=== PATIENT | male | born 1945 | race Caucasian/White ===

== ENCOUNTER 2025-04-26 10:24 | Outpatient (REF) | payer OTHER, SELFPAY ==
--- NOTE | ~2025-04-26 | XR_ITS ---
EXAMINATION: XR SHOULDER 2 OR MORE VIEWS RIGHT HISTORY: M25.511 - Pain in right shoulder COMPARISON: There are no prior studies available for comparison. FINDINGS: Two views of the right shoulder are submitted. Osseous mineralization is normal. There is no fracture or dislocation. There is severe osteoarthritis of the glenohumeral and acromioclavicular joints with joint space narrowing and osteophyte formation. The humeral head appears high riding, suggestive of rotator cuff arthropathy. The soft tissues are unremarkable. XR/XR shoulder RT min 2V IMPRESSION: Severe osteoarthritis of the glenohumeral and acromioclavicular joints. Findings suggestive of rotator cuff arthropathy. Electronically signed by: Manny Rangel MD 04/26/2025 11:29 AM EDT
== END 2025-04-26 10:25 | disposition home or self-care (01) ==
LOC: HO.HOSX 10:24
PROVIDERS: Referring Provider Orthopaedic Surgery; Visit Provider Orthopaedic Surgery
DX: M25.311 Other instability, right shoulder (principal); M25.811 Other specified joint disorders, right shoulder; M25.511 Pain in right shoulder; Z79.899 Other long term (current) drug therapy
CPT/HCPCS: 73030; 99202

== ENCOUNTER 2025-04-26 10:54 | Outpatient (AMB) | payer OTHER, SELFPAY ==
--- OUTSIDE RECORDS SUMMARY | 2025-03-27 12:27 | XMS_ITS ---
Author Name [facility] [place] Organization [facility] [place] Address [address] [place] [id number] Care Team Providers Care Veterinary Receptionist Name Role Phone LING HERRMANN Primary Care Provider Unav ailable LAWRENCE, SOPHIA Unavailable Unavailable JOANN VITAL Unavailable Unavailable ANISH BELCHER Unavailable Unavailable MORE BLAIR Unavailable Unavailable NIGEL CODY Unavailable Unavailable TYLER NUNEZ Unavailable Unavailable DEBBIE DOOLEY Unavailable Unavailable LYNNE LANDAVERDE Unavailable Unavailable Insurance Providers: All historical and current Section Date Range: From patient's date of to the date document was created. This section includes the names of all active insurance providers for the patient. Insurance Provider Type of Coverage Plan Name Start of Policy Coverage End of Policy Coverage Group Number Member ID Insurance Provider's Telephone Number Policy Rascon's Name Patient's Relationship to Policy Rascon [facility] ([facility]) MEDICARE ADVANTAGE MCR ([facility]) Oct 11, 2012 [id number] MARIYA BEST PATIENT [facility] ([facility]) MEDICARE ADVANTAGE MCR ([facility]) Oct 11, 2012 [id number] [phone] MARIYA BEST PATIENT Selected Encounter This section includes the information on record at [place] for the Encounter. 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 Date/Time Primary/Secondary Diagnosis Diagnosis Name Provider Source Mar 27, 2025 04:50 PM PRIMARY Unspecified cirrhosis of liver LING HERRMANN [facility] [place] [facility] Mar 27, 2025 04:50 PM SECONDARY Benign prostatic hyperplasia with lower urinary tract symp EULA HERRMANNTHIA [facility] [place] [facility] Mar 27, 2025 04:50 PM SECONDARY Chronic pain syndrome EULA HERRMANNTHIA [facility] [place] [facility] Mar 27, 2025 04:50 PM SECONDARY Essential (primary) [facility] [place] [facility] Mar 27, 2025 04:50 PM SECONDARY [facility]othy[facility], [facility] [place] [facility] Plan of Treatment: Future Appointments (+ 6 months) and Future Tests (+/- 45 days) The Plan of Treatment section includes future care activities for the patient from all [place] treatmentfacilities. This section includes future appointments and future orders which are active, pending or scheduled. Future Appointments This section includes appointments that were scheduled to occur 6 months from the date of the Encounter, up to a maximum of 20 appointments. The data comes from all [place] treatment facilities. Appointment Date/Time Appointment Type Appointme nt Facility Name Apr 19, 2025 10:00 AM AMBULATORY - NONE [place] [facility] [place] [facility] Apr 19, 2025 10:00 AM [facility]ORY [facility] MEDICINE [facility] Apr 26, 2025 11:00 AM AMBULATORY - MEDICINE [place] [facility] [place] [facility] Active, Pending, and Scheduled Orders This section includes a listing of several types of active, pending, and scheduled orders, including clinic medications orders, diagnostic test orders, procedure orders and consult orders; where the start date of the order is 45 days before the date of the Encounter or 45 days after the date of theEncounter. The data comes from all [place] treatment facilities. Test Date/Time Test Type Test Details Facility Name Apr 12, 2025 03:59 PM Consult Order CARDIOLOGY ONE Cons Rat [facility] Apr 16, 2025 10:15 AM Consult Order COMMUNITY CARE-HEMATOLOGY Cons Rat Farmer[facility] Choice [facility] Apr 25, 2025 04:41 PM Consult Order [facility] OUTPT Cons Rat Farmer's Choice [facility] Lab Results: +/- 30 days of the encounter This section includes the Chemistry and Hematology Lab Results on record with [place] for the patient. Radiology Reports and Pathology Reports are provided separately, in subsequent sections. Lab Results This section contains the Chemistry/Hematology Results that were resulted 30 days before or 30 daysafter the date of the Encounter. Date/Time Source Result Type Result - Unit Interpretation Reference Range Specimen Type Comment Apr 10, 2025 01:30 PM [facility] PHOSPHATIDYLETHANOL (PEth),BLOOD (Q) BLOOD Sp ecimen Type: BLOOD Comment: REFERENCE RANGE: <20 ng/mL REFERENCE RANGE: <20 ng/mL See LDT Notes Notes and Comments This drug testing is for medical treatment only. Analysis was performed as non-forensic testing and these results should be used only by healthcare providers to render diagnosis or treatment, or to monitor progress of medical conditions. LDT Notes: These tests were developed and their analytical performance characteristics have been determined by [facility]. They have not been cleared or approved by the FDA. These assays have been validated pursuant to the CLIA regulations and are used for clinical purposes. Healthcare Providers needing Interpretation assistance, please contact us at [phone] ( ) M-F, 8am to 10pm EST Test Performed by [facility], [address] [place] [address] Aly Brush M.D., Ph.D., Director of Laboratories , CLIA [id number] TEST PERFORMED AT: , Ordering Provider: EULA HERRMANN Report Released Date/Time: Apr 10, 2025 11:27 AM Reporting Lab: [place] [facility] [place] [facility] [address] [facility] [address] Performing Lab: [facility] [place] [facility] [address] [address] PEth 16:0/18:1 (POPEth) (q) NEGATIVE ng/mL SEE BELOW PEth 16:0/18:2 (PLPEth) (q) NEGATIVE ng/mL SEE BELOW PETH COMMENTS (q) SEE NOTE Apr 10, 2025 01:30 PM [facility] [place] [facility] TSH SERUM Specimen Type: SERUM No comment entered. Ordering Provider: LING HERRMANN Report Released Date/Time: Apr 10, 2025 11:27 AM Reporting Lab: [facility] [place] [facility] [address] [facility] [address] Performing Lab: [facility] [place] [facility] [address] [facility] [address] TSH 5.20 u[IU]/mL H 0.35-4.94 Apr 10, 2025 01:30 PM [facility] PSA SERUM Specimen Type: SERUM No comment entered. Ordering Provider: LING HERRMANN Report Released Date/Time: Apr 10, 2025 11:27 AM Reporting Lab: [facility] [place] [facility] [address] [facility] [address] Performing Lab: [place] [facility] [place] [facility] [address] [facility] [address] PSA 14.5 ng/mL H 0-4 Apr 10, 2025 01:30 PM [facility] [place] [facility] LIVER FUNCTION SERUM Specimen Type: SERUM No comment entered. Ordering Provider: LING HERRMANN Report Released Date/Time: Apr 10, 2025 11:27 AM Reporting Lab: [facility] [place] [facility] [address] [facility] [address] Performing Lab: [facility] [place] [facility] [address] [facility] [address] PROTEIN,TOTAL 4.9 g/dL L 6.4-8.3 ALBUMIN 2.4 g/dL L 3.2-4.6 ALKALINE PHOSPHATASE 50 U/L 40-150 AST 49 U/L H 5-34 ALT 18 U/L 0-55 BILIRUBIN, TOTAL 1.4 mg/dL H 0.2-1.2 BILIRUBIN, DIRECT 0.7 mg/dL H 0-0.5 Apr 10, 2025 01:30 PM [facility] BASIC METABOLIC PANEL (non-fasting) SERUM Spe cimen Type: SERUM No comment entered. Ordering Provider: LING HERRMANN Report Released Date/Time: Apr 10, 2025 11:27 AM Reporting Lab: [facility] [address] [facility] [address] Performing Lab: [address] [address] UREA NITROGEN 38 mg/dL H 8-26 GLUCOSE 96 mg/dL 65-100 SODIUM 137 mmol/L 136-145 POTASSIUM 3.8 mmol/L 3.5-5.1 CHLORIDE 108 mmol/L H 98-107 CO2 25 meq/L 23-31 CALCIUM 8.0 mg/dL L 8.8-10 CREATININE, Serum 1.77 mg/dL H 0.72-1.25 eGFR(CKD-EPI 2020) 39 mL/min L >60 Apr 10, 2025 01:30 PM [facility] CBC AND DIFF (AUTO) BLOOD Specimen Type: BLOO D No comment entered. Ordering Provider: LING HERRMANN Report Released Date/Time: Apr 10, 2025 11:27 AM Reporting Lab: [facility] [address] [facility] [address] Performing Lab: [address] [address] WBC 2.73 10*3/uL L 4.50-11.00 RBC 2.70 10*6/uL L 4.23-5.66 HGB 9.7 g/dL L 12.8-17 HCT 27.4 L 39.2-50.4 MCV 101.5 fL H 82-99 MCHC 35.4 g/dL H 30.8-35.1 PLT 76 10*3/uL L 140-360 MPV 11.0 fL 9.2-12.4 RDW-CV 14.9 12.0-16.0 MONO, ABS 0.34 10*3/uL 0.30-1.10 MCH 35.9 pg H 26.2-32.6 NEUT % 38.4 L 43.7-75.8 LYMPH % 33.7 14.0-42.3 MONO % 12.5 5.1-13.7 EOS % 13.9 H 0.4-6.8 BASO % 1.1 0.1-2.0 NEUT, ABS 1.05 10*3/uL L 2.20-7.60 LYMPH, ABS 0.92 10*3/uL L 1.00-3.20 EOS, ABS 0.38 10*3/uL 0.03-0.44 BASO, ABS 0.03 10*3/uL 0.01-0.13 IMMATURE GRAN % 0.4 0.0-0.7 IMMATURE GRAN, ABS 0.01 10*3/uL 0.00-0.0 6 NRBC % 0.0 0.0-0.0 NRBC, ABS 0.00 10*3/uL 0.00-0.00 Mar 13, 2025 10:20 AM [facility] TSH SERUM Specimen Type: SERUM No comment entered. Ordering Provider: LING HERRMANN Report Released Date/Time: Nov 20, 2024 01:19 PM Reporting Lab[facility] [address] [address] Performing [facility]: [facility] [address] [address] TSH 7.85 u[IU]/mL H 0.35-4.94 Mar 13, 2025 10:20 AM [facility] CBC BLOOD Specimen Type: BLOOD No comment entered. Ordering Provider: LING HERRMANN Report Released Date/Time: Nov 20, 2024 01:19 PM Reporting Lab: [address] [address] Performing Lab: [facility] [address] [facility] [address] WBC 3.08 10*3/uL L 4.50-11.00 RBC 3.12 10*6/uL L 4.23-5.66 HGB 11.3 g/dL L 12.8-17 HCT 31.4 L 39.2-50.4 MCV 100.6 fL H 82-99 MCHC 36.0 g/dL H 30.8-35.1 PLT 90 10*3/uL L 140-360 MPV 9.8 fL 9.2-12.4 RDW-CV 14.8 12.0-16.0 MCH 36.2 pg H 26.2-32.6 Mar 13, 2025 10:20 AM [facility] LIVER FUNCTION SERUM Specimen Type: SERUM No comment entered. Ordering Provider: LING HERRMANN Report Released Date/Time: Nov 20, 2024 01:19 PM Reporting Lab: [address] [address] Performing Lab: [address] [address] PROTEIN,TOTAL 6.0 g/dL L 6.4-8.3 ALBUMIN 2.9 g/dL L 3.2-4.6 ALKALINE PHOSPHATASE 49 U/L 40-150 AST 51 U/L H 5-34 ALT 15 U/L 0-55 BILIRUBIN, TOTAL 2.3 mg/dL H 0.2-1.2 BILIRUBIN, DIRECT 1.1 mg/dL H 0-0.5 Mar 13, 2025 10:19 AM [facility] A1A PHENOTYPE PANEL SERUM Specimen Type: SERU M Comment: The banding pattern most closely matches our PI*MM prototype. The bands appear to have been altered by disease, drugs, or possibly in vitro. 90% of normal individuals have the MM phenotype, with normal quantitative AAT levels. Many phenotypic patterns have been described, including deficiency states with F, S, Z, or other alleles. As a general estimation, compared to M allele of 100% of normal G-2-Arfccafhdrd protein, the S allele produces approximately 60% and the Z allele 20%. For example, an MS phenotype would have about 80% of normal V-8-Jyvugqgzvxh protein level, a 50% contribution from the M allele and 30% from the S allele. A ZZ phenotype would have about 20% of normal levels, a 10% contribution from each Z gene. The F allele has normal E-8-Uupwlhlrvmu levels, but the kinetics of elastase inhibition is not as efficient as an M allele product; F alleles should be considered functionally mildly deficient. Other variants are identifiable by phenotypic analysis. These include CM, DP, EM, GM, IS, LM, M1M2, M3M3, MP, MT, XX, MY, and M1N. I, P, T and null alleles are considered deleterious. C, D, E, G, L, M1, M2, M3, X and Y alleles are generally considered normal variants. The MZ-Mcfarlane phenotype is a normal variant; care should be taken to avoid confusion with the deficient MZ phenotype. Test performed by [facility] [address] [place] [address] Restaurant Associate: Ani Hoang MD,PHD,CANDI Test Reported by [facility], [facility], [address] [place] [address] Aly Brush M.D., Ph.D., Director of Laboratories , [facility] [id number] TEST PERFORMED AT: , Ordering Provider: JULIO CESAR TAFOYA Report Released Date/Time: Jan 25, 2025 11:00 AM Reporting Lab: [facility] [address] [facility] [address] Performing Lab: [facility] [address] [address] [id number] PHENOTYPE SEE NOTE A1 ANTITRYPSIN(o) 129 mg/dL 83-199 Mar 13, 2025 10:19 AM [facility] ACTIN (SMOOTH MUSCLE) ANTIBODY (IgG) SERUM Sp ecimen Type: SERUM Comment: REFERENCE RANGE: <20 U Reference Range: <20 U: Negative >or=20 U: Positive Antibodies recognizing actin are the main component of smooth muscle antibodies associated with auto- immune liver disease. Actin antibodies are found in approximately 75% of patients with autoimmune hepatitis (AIH) type 1, approximately 65% of patients with autoimmune cholangitis, approximately 30% of patients with primary biliary cirrhosis and approximately 2% of healthy controls. High values are closely correlated with AIH type 1. Test Performed by [facility], [facility], [address] [place] [address] Aly Brush M.D., Ph.D., Director of Laboratories , [place] [id number] TEST PERFORMED AT: , Ordering Provider: JULIO CESAR TAFOYA Report Released Date/Time: Jan 25, 2025 11:00 AM Reporting Lab: [address] [address] Performing Lab: [facility] [address] [address] ACTIN (SMOOTH MUSCLE) ANTIBODY (IgG) <20 SEE BELOW Mar 13, 2025 10:19 AM [facility] IGG SERUM Specimen Type: SERUM Comment: Specimen Icteric Ordering Provider: JULIO CESAR TAFOYA Report Released Date/Time: Jan 25, 2025 11:00 AM Reporting Lab: [address] [address] Performing Lab: [facility] [address] [facility] [address] IGG 1963 mg/dL H 700-1600 Mar 13, 2025 10:19 AM [facility] HEPATITIS B SURFACE ANTIBODY (HBsAb)-WH SERUM Specimen Type: SERUM No comment entered. Ordering Provider: JULIO CESAR TAFOYA Report Released Date/Time: Jan 25, 2025 11:00 AM Reporting Lab: [address] [address] Performing Lab: [facility] Mar 13, 2025 10:19 AM [facility] HEPATITIS B CORE (Total) Ab SERUM Specimen Ty pe: SERUM Comment: Hep B Surf Ag: Negative for HBsAg. Other markers of Hepatitis B virus are needed to ascertain Hepatitis B infection status. Hep B Core, Total: This test detects both IgG and IgM antibodies. A nonreactive final interpretation indicates that anti-HBc antibodies were not detected in the sample. Ordering Provider: JULIO CESAR TAFOYA Report Released Date/Time: Jan 25, 2025 11:00 AM Reporting Lab: [address] [address] Performing Lab: [address] [address] HEPATITIS B CORE (Total) Ab Non Reactive Non Reactive Mar 13, 2025 10:19 AM [facility] CERULOPLASMIN SERUM Specimen Type: SERUM Comment: Specimen Icteric Ordering Provider: JULIO CESAR TAFOYA Report Released Date/Time: Jan 25, 2025 11:00 AM Reporting Lab: [address] [address] Performing Lab: [facility] [address] [facility] [address] CERULOPLASMIN 28 mg/dL 20-60 Mar 13, 2025 10:19 AM [facility] HEPATITIS B SURFACE ANTIGEN (HBsAg)-WH SERUM Specimen Type: SERUM Comment: Hep B Surf Ag: Negative for HBsAg. Other markers of Hepatitis B virus are needed to ascertain Hepatitis B infection status. Hep B Core, Total: This test detects both IgG and IgM antibodies. A nonreactive final interpretation indicates that anti-HBc antibodies were not detected in the sample. Ordering Provider: JULIO CESAR TAFOYA Report Released Date/Time: Jan 25, 2025 11:00 AM Reporting Lab: [address] [address] Performing Lab: [address] [address] HBsAg Non Reactive Non Reactive Mar 13, 2025 10:19 AM [facility] BASIC METABOLIC PANEL (non-fasting) SERUM Spe cimen Type: SERUM No comment entered. Ordering Provider: JULIO CESAR TAFOYA Report Released Date/Time: Jan 25, 2025 11:00 AM Reporting Lab: [facility] [address] [facility] [address] Performing Lab: [facility] [address] [facility] [address] UREA NITROGEN 32 mg/dL H 8-26 GLUCOSE 84 mg/dL 65-100 SODIUM 138 mmol/L 136-145 POTASSIUM 4.1 mmol/L 3.5-5.1 CHLORIDE 106 mmol/L 98-107 CO2 23 meq/L 23-31 CALCIUM 9.0 mg/dL 8.8-10 CREATININE, Serum 1.26 mg/dL H 0.72-1.25 eGFR(CKD-EPI 2020) 58 mL/min L >60 Vital Signs: All taken on the encounter date This section contains inpatient and outpatient Vital Signs collected on the date of the Encounter. Date/Time Temperature Pulse Blood Pressure Respiratory Rate SP02 Pain Height Weight Body Mass Index Source Mar 27, 2025 04:32 PM 98.7 F 57 /min 122/52 mm[Hg] 16 /min 98 % 258 lb 37 [facility] Advance Directives: All historical and current Section Date Range: From patient's date of to the date document was created. This section includes ALL of a patient's completed or amended [place] Advance and Rescinded Directives. The entries below indicate that a directive exists for the patient, but an actual copy is not included with this document. The data comes from all [place] facilities. Date Advance Directives Provider Source Aug 25, 2024 ADVANCE DIRECTIVE SOPHIA BRAVO [facility] Jun 22, 2024 ADVANCE DIRECTIVE TRUE GRANT [facility] Dec 05, 2015 ADVANCE DIRECTIVE KASSIE SMITH [facility] Radiology Reports: +/- 30 days of the encounter Radiology Reports For cases when an order for radiology services may have been completed prior to the date of the Encounter, the report list includes the Radiology Reports that were completed up to 30 days before dateof the Encounter. For cases when an order for radiology services may have been completed after the date of the Encounter, the report list also includes the Radiology Reports that were completed up to30 days after date of the Encounter. The data comes from all [place] treatment facilities. Date/Time Radiology Report Provider Source Mar 13, 2025 11:[address] LIVER W/WO IV C ONTRAST 4 PHASE HCC: BONNY BEST [id number] -[id number] M Exm Date: MAR 13, 2025@11:09 Req Phys: JULIO CESAR TAFOYA Pat Loc: [facility] V01 [facility] LIVER MD ADM (Req' Img Loc: [facility]/CT Service: Unknown [place] [facility] [address] (Case 224 COMPLETE) CT LIVER W/WO IV CONTRAST 4 PHASE(CT Detailed) CPT:54943 Contrast Media : Non-ionic Iodinated Reason for Study: Cirrhosis, HCC surveillance Clinical History: UREA NITROGEN - NONE FOUND CREATININE-EGFR - NONE FOUND EGFR - NONE FOUND Contrast Questionnaire Is this Patient a Diabetic and taking Metformin (to include Glucophage, Avandamet, and Metaglip)? No If YES, patient should Stop Metformin for 48 hours after the contrast exam, then: N/A (Patient is not on Metformin) Cirrhosis, please perform liver protocol CT Report Status: Verified Date Reported: MAR 14, 2025 Date Verified: MAR 14, 2025 Supervisor Forming Department E-Sig:/ES/MILTON PRITCHETT JR Report: Study: CT scan of the abdomen with and without contrast, liver tumor protocol. COMPARISON: Abdominal ultrasound from January 04, 2025, August 31, 2024 and June 29, 2023. Technique: Oral contrast was not administered. Noncontrast 5 mm contiguous axial images were obtained from the lung bases through the kidneys. After the uneventful administration of 100 cc of Omnipaque 350 nonionic intravenous contrast media, multiple 3 mm contiguous axial images were obtained from the lung bases through the kidneys in the arterial, portal venous and five-minute delayed phases. Sagittal and coronal reformatted images are provided. Findings: Mild elevation of the right hemidiaphragm. Mild dependent changes present at the lung bases. The visualized heart and pericardium appear normal. The gallbladder is uniformly filled with 5-6 mm small round calcified gallstones with no gallbladder wall thickening or pericholecystic edema identified. If gallbladder dysfunction is suspected, a HIDA scan may be helpful to better evaluate. Multiple small punctate calcified granulomata are present in the liver. There is overall somewhat shrunken appearance to the liver with diffuse steatotic changes. No abnormal enhancement or mass is identified. The portal vein appears patent and normal. No intrahepatic or extrahepatic biliary ductal dilatation is identified. The pancreas appears normal. The spleen is enlarged at 14.3 cm in long length without focal abnormality. Prominent splenorenal collateral vessels are seen. Prominent paraesophageal vessels are also seen. These findings are likely secondary to portal hypertension. The kidneys enhance normally and symmetrically. No focal renal abnormality is identified. The visualized ureters are normal in course and caliber. The adrenal glands appear normal. The abdominal aorta is patent and normal in course and caliber with patency of the major mesenteric vascular branches. No aneurysmal dilatation is identified. The stomach, visualized small bowel, and the visualized colon appear normal. The appendix appears normal. No abdominal wall hernia is identified. There is no dominant lymphadenopathy. There is no intra-abdominal free air or free fluid. Age-appropriate degenerative changes are seen to the spine. No acute bony pathology is seen. Axial hardware developer device again seen at the L5 vertebral level. Impression: No abnormal liver mass or enhancement identified with cholelithiasis, portal hypertensive changes and splenomegaly without acute abnormality identified, as described above Primary Diagnostic Code: No immediate attention required Primary Interpreting Staff: MILTON PRITCHETT JR, Radiologist (Supervisor Forming Department) /MILTON ROLLINS JR [facility] Encounter Notes: All associated encounter notes This section contains the clinical notes associated to the Encounter. Date/Time Encounter Note(s) Provider Source Apr 10, 2025 03:57 PM LETTERS: LOCAL TITLE: PATIENT LETTER (B) STANDARD TITLE: LETTERS DATE OF NOTE: APR 10, 2025@15:57 ENTRY DATE: APR 10, 2025@15:57:16 AUTHOR: AMANDA HERRMANN EXP COSIGNER: URGENCY: STATUS: COMPLETED PATIENT LETTER (B) Has ADDENDA [facility] [address] [place] [id number] BONNY BEST [address] [place], [place] [address] Date:APR 16, 2025 Dear BONNY BEST, Please share your elevated PSA with your urologist. I have referred you to hematology via community care as your white blood cells have declined and you are anemic. Your thyroid has imporved. We will continue to monitor. LAB CHEMISTRY & HEMATOLOGY Collection DT Specimen Test Name Result Units Ref Range 04/10/2025 13:30 SERUM PSA 14.5 H ng/mL 0 - 4 04/10/2025 13:30 SERUM CALCIUM 8.0 L mg/dL 8.8 - 10 CREATININE, Serum 1.77 H mg/dL 0.72 - 1.25 eGFR(CKD-EPI 2020 39 L mL/min Ref: >=60 SODIUM 137 mmol/L 136 - 145 POTASSIUM 3.8 mmol/L 3.5 - 5.1 CHLORIDE 108 H mmol/L 98 - 107 CO2 25 mEq/L 23 - 31 UREA NITROGEN 38 H mg/dL 8 - 26 GLUCOSE 96 mg/dL 65 - 100 04/10/2025 13:30 SERUM PROTEIN,TOTAL 4.9 L g/dL 6.4 - 8.3 ALBUMIN 2.4 L g/dL 3.2 - 4.6 ALK MJ 50 U/L 40 - 150 AST 49 H U/L 5 - 34 BILIRUBIN, TOTAL 1.4 H mg/dL 0.2 - 1.2 BILIRUBIN, DIRECT 0.7 H mg/dL 0 - 0.5 ALT 18 U/L 0 - 55 04/10/2025 13:30 BLOOD WBC 2.73 L 10*3/uL 4.50 - 11.00 RBC 2.70 L 10*6/uL 4.23 - 5.66 HGB 9.7 L g/dL 12.8 - 17 HCT 27.4 L % 39.2 - 50.4 MCV 101.5 H fl 82 - 99 MCH 35.9 H pg 26.2 - 32.6 MCHC 35.4 H g/dL 30.8 - 35.1 RDW-CV 14.9 % 12.0 - 16.0 PLT 76 L 10*3/uL 140 - 360 MPV 11.0 fL 9.2 - 12.4 NEUT % 38.4 L % 43.7 - 75.8 LYMPH % 33.7 % 14.0 - 42.3 MONO % 12.5 % 5.1 - 13.7 EOS % 13.9 H % 0.4 - 6.8 BASO % 1.1 % 0.1 - 2.0 IMMATURE GRAN % 0.4 % 0.0 - 0.7 NRBC % 0.0 % 0.0 - 0.0 NEUT, ABS 1.05 L 10*3/uL 2.20 - 7.60 LYMPH, ABS 0.92 L 10*3/uL 1.00 - 3.20 MONO, ABS 0.34 10*3/uL 0.30 - 1.10 EOS, ABS 0.38 10*3/uL 0.03 - 0.44 BASO, ABS 0.03 10*3/uL 0.01 - 0.13 IMMATURE GRAN, AB 0.01 10*3/uL 0.00 - 0.06 NRBC, ABS 0.00 10*3/uL 0.00 - 0.00 04/10/2025 13:30 SERUM TSH 5.20 H uIU/mL 0.35 - 4.94 Please call [phone] if you have any questions or concerns. Sincerely, Ling Herrmann Nurse Practitioner [facility] [address] [place] [address] fax: [phone] Upcoming Appointments: 04/19/2025 10:00 CWM V01 [facility] LIVER ADM 04/26/2025 11:00 [facility] CARE-ORTHO SURGICAL APPOINTMENT ABBREVIATION PINA (SPOPC OR SO = [address]) (GOPC OR GO = [address]) (NHM or NO = [facility]) (VVC - Video Call) (Tel-X Telephone Visit) (TH - Telehealth) 04/16/2025 ADDENDUM STATUS: COMPLETED sent via , also asked if wants nurology referral given c/o memory issues /es/ LING HERRMANN RN,MSN,HYGIENE COORDINATOR-C [facility] NURSE PRACTITIONER Signed: 04/16/2025 10:11 VALENCIA HERRMANN PAAmarilis PR CNTRL WSTRN KALINA [facility] Mar 27, 2025 04:55 PM ADDENDUM: LOCAL TITLE: Addendum STANDARD TITLE: ADDENDUM DATE OF NOTE: MAR 27, 2025@16:55:19 ENTRY DATE: MAR 27, 2025@16:55:20 AUTHOR: AMANDA HERRMANN EXP COSIGNER: URGENCY: STATUS: COMPLETED Please review need for grab bars going out back deck at f/u. /es/ LING HERRMANN RN,MSN,HYGIENE COORDINATOR-C [facility] NURSE PRACTITIONER Signed: 03/27/2025 16:55 Receipt Acknowledged By: 03/28/2025 12:22 /guillermo/ Debbie Dooley [facility] Occupational Therapist --- Original Document --- 03/27/25 [facility] FUNERAL HOME ASSISTANT PROGRESS NOTE: [place] was seen for: (x)routine visit ( ) problem visit Identified by name, , address and facial recognition VVC Ready: Yes [x] No [ ] Chief complaint:Pt is a 79 seen for follow up of medical problems as noted below. HPI:79 yo M seen for f/u accompanied by . Main concern today is sleep disturbance. Patient naps a lot during the day and questions why he can not sleep at night. Sleep hygiene discussed. Trazodone occ helps but not all the time. Also sensitive to meds. Discussed non pharm treatments. Patient also declines hx of JL or need for home sleep study. Explained can consider CBT-I, home sleep study, or even veronica psych eval as needed. non [place] PCP: Dr. Jackson non [place] urology PMH: Active problems - Computerized Problem List is the source for the followin. Cirrhosis of liver 2. pharmacogenetic testing results in [facility], poor metobolizer of CY, ultra-rapid metabolizer of [id number] 3. Edema 4. Lower urinary tract symptoms 5. Chronic pain 6. Parotitis x 2 passed w lemon drops 7. History of SARS-CoV-2 x3 8. Frail elderly 9. Hypertension Cardio is Dr Cazares [phone] EKG 11/01/19 SB w 1AVB EKG 08/29/24 SB HR 53 1 AVB, nonspecific intraventricular conduction delay Echo 08/29/24 Mild LVH, normal LVEF, Impaired diastolic relaxation (normal for age) 10. Carcinoma of prostate Dx 2017; Just Watch & Wait; no RT or Chemo Ever Done Still Sees URO as Directed as of [address] Lopez [phone] TURP bx 11/03 demonstrating 1 core of Naima 6 disease w PSA 14.7, 06/03 PSA improved to 11.8 w 6 month f/u 11. Aortic aneurysm Ascending Aortic Aneurysm; < 5 CM as of 2022; Serial US's of Aorta Done via Private Cardio Cardio is Dr Cazares [phone] 12. Hypothyroidism 13. Sensory neuropathy Involves Both LE's Below Knee and Both Feet Also a New Sensory Neuropathy Both Hands 14. Spinal stenosis of lumbosacral region Discectomy (level?) and Laminectomy (level?) approx 2019; Spin Stenosis Contrubuted to Periph Sensory Neuropathy LE's and Fet 08/31/24 x-ray L/S multil level DDD 15. Osteonecrosis of head of femur Osteo-Necrosis, Head Both Femurs ; Then Had THR, Bilat and Surg Revision Left Hip Cause of Osteo- Necrosis? Corticosteroids 16. Carpal tunnel syndrome of right wrist Carpal Tunnel Release, R Wrist approx 2014 17. Screening for malignant neoplasm of colon done Last Surveil Colonoscopy approx 2019: no CRC; +Benign Poiyposis Curtail Further Surveil Colonoscopies; Can't Do Prep Anymore Also Has Ext/Internal Hemorrhoids Gastro is Dr Baxter [phone] 18. Alcoholic cirrhosis Ceased ETOH Early ; Has Consequent Thrombocytopenia 08/30 had EGD w no varices repeat in 3 years recommended (declined) 19. Hypercholesterolemia 20. Shoulder pain R Shldr > L Shldr; R Shldr Hurt Upon a Fall Onto R Shldr 21. Anemia 22. Splenomegaly Context of this Splenomegaly? Might Be An Incidental Finding on a CT of ABD 23. Unsteady when walking Can't Ambulate w/o Walker (due to lower ext. neuropathy and lingering lbp) 24. Visual impairment Uses Only Reading Glasses; Last Retinal Exam JUL 04: pending Further Ophth Eval Later JUL 04 25. Under care of doctor PCP Dr Jackson [phone] non [place] pharmacy: [facility] [phone] 26. Chronic gouty arthritis 27. Abnormal gait due to impairment of balance Severe Neuropathy Legs, Feet; Can't Weight-Bear Allergies: PREDNISONE, HCTZ HYDROCHLOROTHIAZIDE, MEDROL (MARGO), DILTIAZEM The following VA and Non-VA meds were reconciled with patient: Active and Recently Outpatient Medications (excluding Supplies): Active Outpatient Medications Status 1) DICLOFENAC NA 1% TOP GEL APPLY 2 GRAMS TOPICALLY FOUR TIMES ACTIVE DAILY NEEDED - USE DOSING CARD PROVIDED IN BOX Indication: FOR OSTEOARTHRITIS 2) FUROSEMIDE 20MG TAB TAKE ONE TABLET BY MOUTH ONCE DAILY TO ACTIVE REMOVE FLUID/CONTROL BLOOD PRESSURE Indication: FOR VISIBLE WATER RETENTION 3) LEVOTHYROXINE NA 100MCG TAB TAKE ONE TABLET BY MOUTH EVERY ACTIVE MORNING 30 MINUTES BEFORE BREAKFAST TAKE ON AN EMPTY STOMACH WITH A FULL GLASS OF WATER DOSE REDUCTION Indication: FOR THYROID 4) LIDOCAINE 5% PATCH APPLY 1 PATCH TOPICALLY ONCE DAILY ACTIVE NEEDED (LEAVE PATCH ON FOR 12 HOURS, THEN REMOVE PATCH) MAY USE UP TO 3 PATCHES/DAY Indication: FOR NERVE PAIN 5) LOSARTAN 25MG TAB TAKE ONE TABLET BY MOUTH ONCE DAILY FOR ACTIVE BLOOD PRESSURE/HEART Indication: FOR HIGH BLOOD PRESSURE 6) MICONAZOLE NITRATE 2% TOP CREAM APPLY A THIN FILM TOPICALLY ACTIVE TWICE DAILY NEEDED APPLY TO AFFECTED AREAS UNTIL RESOLVED AND NEEDED Indication: FOR FUNGAL INFECTION OF SKIN 7) SENNOSIDES 8.6MG TAB TAKE ONE TABLET BY MOUTH ONCE DAILY ACTIVE NEEDED Indication: FOR CONSTIPATION 8) TRAZODONE HCL 100MG TAB TAKE ONE-HALF TO ONE TABLET BY MOUTH ACTIVE AT BEDTIME NEEDED FOR Indication: SLEEP 9) TRIAMCINOLONE ACETONIDE 0.5% CREAM APPLY A SMALL AMOUNT ACTIVE TOPICALLY TWICE DAILY USE 2-4 WEEKS, UNTIL RESOLVED Indication: FOR SKIN INFLAMMATION 10) ZINC OXIDE 20% OINT APPLY SMALL AMOUNT TOPICALLY ONCE DAILY ACTIVE APPLY AROUND ANY OPEN SKIN Indication: FOR SKIN IRRITATION Active Non-VA Medications Status 1) Non-VA ALLOPURINOL 300MG TAB 300MG BY MOUTH ONCE DAILY ACTIVE 2) Non-VA ATORVASTATIN CALCIUM 20MG TAB 10MG BY MOUTH BEDTIME ACTIVE 3) Non-VA FAMOTIDINE 20MG TAB 20MG BY MOUTH ONCE DAILY ACTIVE 4) Non-VA FENOFIBRATE (EQV-TRICOR)*PREFERRED* TAB 200 MG BY ACTIVE MOUTH ONCE DAILY 5) Non-VA IPRATROPIUM BR 0.06% SOLN,SPRAY,NASAL 0.03% INTO EACH ACTIVE NOSTRIL ONCE DAILY 6) Non-VA MULTIVITAMIN CAP/TAB 1 TABLET BY MOUTH ONCE DAILY ACTIVE 7) Non-VA OTHER CAP/TAB MAGNESIUM GLYCINATE 240MG BY MOUTH AT ACTIVE BEDTIME 8) Non-VA TAMSULOSIN HCL 0.4MG CAP 0.8MG BY MOUTH ONCE DAILY ACTIVE 9) Non-VA TRAMADOL HCL 50MG TAB 50MG BY MOUTH THREE TIMES DAILY ACTIVE NEEDED 10) Non-VA VITAMIN D3 (CHOLECALCIFEROL) TAB 5MCG BY MOUTH ONCE ACTIVE DAILY 20 Total Medications Recent Falls Y( ) N(x) Recent Infections Y( ) N(x) Recent Hospitalizations Y ( ) N(x) SH: SERVICE CONNECTED % - NONE FOUND RATED DISABILITIES - NONE 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 No GI/ concerns. No psych concerns. sleep poor d/t napping VITAL SIGNS: B/P: 122/52 (03/27/2025 16:32) Pulse: 57 (03/27/2025 16:32) Temperature: 98.7 F [37.1 C] (03/27/2025 16:32) Weight: 258 lb [117.03 kg] (03/27/2025 16:32) Height: 70 in [177.8 cm] (06/22/2024 11:09) BMI: BMI: 37.1 Pain: 1 (03/06/2025 14:00) (0-10 scale) Pulse Ox:Measurement DT POx (L/MIN)(%) 03/27/2025 16:32 98 pt is alert and oriented x4. NAD. well kempt, mood appropriate, good eye contact HEENT: normal, pharynx normal, oral mucosa moist NECK: supple, no JVD, lymph nodes not palpable, no carotid bruits CVS: regular rate and rhythm normal Lungs: clear to auscultation throughout, no use of accessory muscles ABD: Benign, positive BS x 4 EXT: +3/4 BLE pitting edema R>L, good signs of perfuson DERM: no worrisome lesions, pink in between abd skin folds, area of inflammed skin to RLE Get up and go normal (x)with ( )without assistive device. 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 referred to heme and they want in person eval, cont to monitor and refer locally as patient desires >Anxiety: improved prviously discussed biofeedback, CBT, alpha stim >insomnia: r/t napping during day, encouraged limit this sleep hygeine discussed list of VA apps provided declines home sleep study cont w trazodone 50-100mg qhs PRN consider veronica psych eval if requested >HTN: Stable. c/w lasix 20mg daily, does not wish to increase dose c/w compression device c/w home BP monitor monitor, HIMANSHU diet weight today 258 which is improved. >hypothyroidism: concern is overcorrected then undercurrected. Previously took in AM w all meds. now taking in PM, repeat labs as ordered Synthroid 100mcg daily, follow TSH >chronic pain: has not been a recent complaint. 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 stop fenofibrtate in setting of elevated LFTs, monitor HM: (x)advance directive UTD f/u 3-6 months, sooner PRN Review of medical records: 10 min Time spent w patient including shared decision makin min Post visit documentation: [address] time: 60 min No barriers; Patient understands and agrees to current treatment plan. /guillermo/ LING HERRMANN RN,MSN,HYGIENE COORDINATOR-C [facility] NURSE PRACTITIONER Signed: 03/27/2025 16:50 03/27/2025 ADDENDUM STATUS: COMPLETED patient agrees to hep B series. updated labs ordered for /guillermo/ LING HERRMANN RN,MSN,HYGIENE COORDINATOR-C [facility] NURSE PRACTITIONER Signed: 03/27/2025 16:51 Receipt Acknowledged By: * AWAITING SIGNATURE * NAILA PATTEN 03/27/2025 17:41 /guillermo/ CAIT LOW, JEWELRY MODEL MAKER [facility] CURRENCY COUNTER VALENCIA HERRMANN PR CNTL WSTRN [facility] Mar 27, 2025 04:50 PM ADDENDUM: LOCAL TITLE: Addendum STANDARD TITLE: ADDENDUM DATE OF NOTE: MAR 27, 2025@16:50:34 ENTRY DATE: MAR 27, 2025@16:50:35 AUTHOR: AMANDA HERRMANN COSIGNER: URGENCY: STATUS: COMPLETED patient agrees to hep B series. updated labs ordered for /guillermo/ LING HERRMANN RN,MSN,HYGIENE COORDINATOR-C [facility] NURSE PRACTITIONER Signed: 03/27/2025 16:51 Receipt Acknowledged By: 03/28/2025 18:09 /es/ Naila Patten, MSN, COMBINATION MAN [facility] Tape Fastener Machine Operator 03/27/2025 17:41 /es/ CAIT LOW JEWELRY MODEL MAKER [facility] CURRENCY COUNTER --- Original Document --- 03/27/25 [facility] FUNERAL HOME ASSISTANT PROGRESS NOTE: was seen for: (x)routine visit ( ) problem visit Identified by name, , address and facial recognition VVC Ready: Yes [x] No [ ] Chief complaint:Pt is a 79 seen for follow up of medical problems as noted below. HPI:79 yo M seen for f/u accompanied by . Main concern today is sleep disturbance. Patient naps a lot during the day and questions why he can not sleep at night. Sleep hygiene discussed. Trazodone occ helps but not all the time. Also sensitive to meds. Discussed non pharm treatments. Patient also declines hx of JL or need for home sleep study. Explained can consider CBT-I, home sleep study, or even veronica psych eval as needed. non [place] PCP: Dr. Jackson non [place] urology PMH: Active problems - Computerized Problem List is the source for the followin. Cirrhosis of liver 2. pharmacogenetic testing results in [facility], poor metobolizer of CY, ultra-rapid metabolizer of [id number] 3. Edema 4. Lower urinary tract symptoms 5. Chronic pain 6. Parotitis x 2 passed w lemon drops 7. History of SARS-CoV-2 x3 8. Frail elderly 9. Hypertension Cardio is Dr Cazares [phone] EKG 11/01/19 SB w 1AVB EKG 08/29/24 SB HR 53 1 AVB, nonspecific intraventricular conduction delay Echo 08/29/24 Mild LVH, normal LVEF, Impaired diastolic relaxation (normal for age) 10. Carcinoma of prostate Dx 2017; Just Watch & Wait; no RT or Chemo Ever Done Still Sees URO as Directed as of [address] Lopez [phone] TURP bx 11/03 demonstrating 1 core of Naima 6 disease w PSA 14.7, 06/03 PSA improved to 11.8 w 6 month f/u 11. Aortic aneurysm Ascending Aortic Aneurysm; < 5 CM as of 2022; Serial US's of Aorta Done via Private Cardio Cardio is Dr Cazares [phone] 12. Hypothyroidism 13. Sensory neuropathy Involves Both LE's Below Knee and Both Feet Also a New Sensory Neuropathy Both Hands 14. Spinal stenosis of lumbosacral region Discectomy (level?) and Laminectomy (level?) approx 2019; Spin Stenosis Contrubuted to Periph Sensory Neuropathy LE's and Fet 08/31/24 x-ray L/S multil level DDD 15. Osteonecrosis of head of femur Osteo-Necrosis, Head Both Femurs ; Then Had THR, Bilat and Surg Revision Left Hip Cause of Osteo- Necrosis? Corticosteroids 16. Carpal tunnel syndrome of right wrist Carpal Tunnel Release, R Wrist approx 2014 17. Screening for malignant neoplasm of colon done Last Surveil Colonoscopy approx 2019: no CRC; +Benign Poiyposis Curtail Further Surveil Colonoscopies; Can't Do Prep Anymore Also Has Ext/Internal Hemorrhoids Gastro is Dr Baxter [phone] 18. Alcoholic cirrhosis Ceased ETOH Early ; Has Consequent Thrombocytopenia 08/30 had EGD w no varices repeat in 3 years recommended (declined) 19. Hypercholesterolemia 20. Shoulder pain R Shldr > L Shldr; R Shldr Hurt Upon a Fall Onto R Shldr 21. Anemia 22. Splenomegaly Context of this Splenomegaly? Might Be An Incidental Finding on a CT of ABD 23. Unsteady when walking Can't Ambulate w/o Walker (due to lower ext. neuropathy and lingering lbp) 24. Visual impairment Uses Only Reading Glasses; Last Retinal Exam JUL 04: pending Further Ophth Eval Later JUL 04 25. Under care of doctor PCP Dr Jackson [phone] non [place] pharmacy: [facility] [phone] 26. Chronic gouty arthritis 27. Abnormal gait due to impairment of balance Severe Neuropathy Legs, Feet; Can't Weight-Bear Allergies: PREDNISONE, HCTZ HYDROCHLOROTHIAZIDE, MEDROL (MARGO), DILTIAZEM The following VA and Non-VA meds were reconciled with patient: Active and Recently Outpatient Medications (excluding Supplies): Active Outpatient Medications Status 1) DICLOFENAC NA 1% TOP GEL APPLY 2 GRAMS TOPICALLY FOUR TIMES ACTIVE DAILY NEEDED - USE DOSING CARD PROVIDED IN BOX Indication: FOR OSTEOARTHRITIS 2) FUROSEMIDE 20MG TAB TAKE ONE TABLET BY MOUTH ONCE DAILY TO ACTIVE REMOVE FLUID/CONTROL BLOOD PRESSURE Indication: FOR VISIBLE WATER RETENTION 3) LEVOTHYROXINE NA 100MCG TAB TAKE ONE TABLET BY MOUTH EVERY ACTIVE MORNING 30 MINUTES BEFORE BREAKFAST TAKE ON AN EMPTY STOMACH WITH A FULL GLASS OF WATER DOSE REDUCTION Indication: FOR THYROID 4) LIDOCAINE 5% PATCH APPLY 1 PATCH TOPICALLY ONCE DAILY ACTIVE NEEDED (LEAVE PATCH ON FOR 12 HOURS, THEN REMOVE PATCH) MAY USE UP TO 3 PATCHES/DAY Indication: FOR NERVE PAIN 5) LOSARTAN 25MG TAB TAKE ONE TABLET BY MOUTH ONCE DAILY FOR ACTIVE BLOOD PRESSURE/HEART Indication: FOR HIGH BLOOD PRESSURE 6) MICONAZOLE NITRATE 2% TOP CREAM APPLY A THIN FILM TOPICALLY ACTIVE TWICE DAILY NEEDED APPLY TO AFFECTED AREAS UNTIL RESOLVED AND NEEDED Indication: FOR FUNGAL INFECTION OF SKIN 7) SENNOSIDES 8.6MG TAB TAKE ONE TABLET BY MOUTH ONCE DAILY ACTIVE NEEDED Indication: FOR CONSTIPATION 8) TRAZODONE HCL 100MG TAB TAKE ONE-HALF TO ONE TABLET BY MOUTH ACTIVE AT BEDTIME NEEDED FOR Indication: SLEEP 9) TRIAMCINOLONE ACETONIDE 0.5% CREAM APPLY A SMALL AMOUNT ACTIVE TOPICALLY TWICE DAILY USE 2-4 WEEKS, UNTIL RESOLVED Indication: FOR SKIN INFLAMMATION 10) ZINC OXIDE 20% OINT APPLY SMALL AMOUNT TOPICALLY ONCE DAILY ACTIVE APPLY AROUND ANY OPEN SKIN Indication: FOR SKIN IRRITATION Active Non-VA Medications Status 1) Non-VA ALLOPURINOL 300MG TAB 300MG BY MOUTH ONCE DAILY ACTIVE 2) Non-VA ATORVASTATIN CALCIUM 20MG TAB 10MG BY MOUTH BEDTIME ACTIVE 3) Non-VA FAMOTIDINE 20MG TAB 20MG BY MOUTH ONCE DAILY ACTIVE 4) Non-VA FENOFIBRATE (EQV-TRICOR)*PREFERRED* TAB 200 MG BY ACTIVE MOUTH ONCE DAILY 5) Non-VA IPRATROPIUM BR 0.06% SOLN,SPRAY,NASAL 0.03% INTO EACH ACTIVE NOSTRIL ONCE DAILY 6) Non-VA MULTIVITAMIN CAP/TAB 1 TABLET BY MOUTH ONCE DAILY ACTIVE 7) Non-VA OTHER CAP/TAB MAGNESIUM GLYCINATE 240MG BY MOUTH AT ACTIVE BEDTIME 8) Non-VA TAMSULOSIN HCL 0.4MG CAP 0.8MG BY MOUTH ONCE DAILY ACTIVE 9) Non-VA TRAMADOL HCL 50MG TAB 50MG BY MOUTH THREE TIMES DAILY ACTIVE NEEDED 10) Non-VA VITAMIN D3 (CHOLECALCIFEROL) TAB 5MCG BY MOUTH ONCE ACTIVE DAILY 20 Total Medications Recent Falls Y( ) N(x) Recent Infections Y( ) N(x) Recent Hospitalizations Y ( ) N(x) SH: SERVICE CONNECTED % - NONE FOUND RATED DISABILITIES - NONE 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 No GI/ concerns. No psych concerns. sleep poor d/t napping VITAL SIGNS: B/P: 122/52 (03/27/2025 16:32) Pulse: 57 (03/27/2025 16:32) Temperature: 98.7 F [37.1 C] (03/27/2025 16:32) Weight: 258 lb [117.03 kg] (03/27/2025 16:32) Height: 70 in [177.8 cm] (06/22/2024 11:09) BMI: BMI: 37.1 Pain: 1 (03/06/2025 14:00) (0-10 scale) Pulse Ox:Measurement DT POx (L/MIN)(%) 03/27/2025 16:32 98 pt is alert and oriented x4. NAD. well kempt, mood appropriate, good eye contact HEENT: normal, pharynx normal, oral mucosa moist NECK: supple, no JVD, lymph nodes not palpable, no carotid bruits CVS: regular rate and rhythm normal Lungs: clear to auscultation throughout, no use of accessory muscles ABD: Benign, positive BS x 4 EXT: +3/4 BLE pitting edema R>L, good signs of perfuson DERM: no worrisome lesions, pink in between abd skin folds, area of inflammed skin to RLE Get up and go normal (x)with ( )without assistive device. 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 referred to heme and they want in person eval, cont to monitor and refer locally as patient desires >Anxiety: improved prviously discussed biofeedback, CBT, alpha stim >insomnia: r/t napping during day, encouraged limit this sleep hygeine discussed list of VA apps provided declines home sleep study cont w trazodone 50-100mg qhs PRN consider veronica psych eval if requested >HTN: Stable. c/w lasix 20mg daily, does not wish to increase dose c/w compression device c/w home BP monitor monitor, HIMANSHU diet weight today 258 which is improved. >hypothyroidism: concern is overcorrected then undercurrected. Previously took in AM w all meds. now taking in PM, repeat labs as ordered Synthroid 100mcg daily, follow TSH >chronic pain: has not been a recent complaint. 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 stop fenofibrtate in setting of elevated LFTs, monitor HM: (x)advance directive UTD f/u 3-6 months, sooner PRN Review of medical records: 10 min Time spent w patient including shared decision makin min Post visit documentation: [address] time: 60 min No barriers; Patient understands and agrees to current treatment plan. /guillermo/ LING HERRMANN RN,MSN,HYGIENE COORDINATOR-C [facility] NURSE PRACTITIONER Signed: 03/27/2025 16:50 03/27/2025 ADDENDUM STATUS: COMPLETED Please review need for grab bars going out back deck at f/u. /guillermo/ LING HERRMANN RN,MSN,HYGIENE COORDINATOR-C [facility] NURSE PRACTITIONER Signed: 03/27/2025 16:55 Receipt Acknowledged By: 03/28/2025 12:22 /guillermo/ Debbie Dooley [facility] Occupational Therapist VALENCIA HERRMANN PAAmarilis PR CNTRL WSTRN [facility] Mar 27, 2025 04:27 PM [facility] NOTE: LOCAL TITLE: HB FUNERAL HOME ASSISTANT PROGRESS NOTE STANDARD TITLE: HB NOTE DATE OF NOTE: MAR 27, 2025@16:27 ENTRY DATE: MAR 27, 2025@16:27:16 AUTHOR: AMANDA HERRMANN COSIGNER: URGENCY: STATUS: COMPLETED HB FUNERAL HOME ASSISTANT PROGRESS NOTE Has ADDENDA [place] was seen for: (x)routine visit ( ) problem visit Identified by name, , address and facial recognition VVC Ready: Yes [x] No [ ] Chief complaint:Pt is a 79 seen for follow up of medical problems as noted below. HPI:79 yo M seen for f/u accompanied by . Main concern today is sleep disturbance. Patient naps a lot during the day and questions why he can not sleep at night. Sleep hygiene discussed. Trazodone occ helps but not all the time. Also sensitive to meds. Discussed non pharm treatments. Patient also declines hx of JL or need for home sleep study. Explained can consider CBT-I, home sleep study, or even veronica psych eval as needed. non [place] PCP: Dr. Jackson non [place] urology PMH: Active problems - Computerized Problem List is the source for the followin. Cirrhosis of liver 2. pharmacogenetic testing results in [facility], poor metobolizer of CY, ultra-rapid metabolizer of [id number] 3. Edema 4. Lower urinary tract symptoms 5. Chronic pain 6. Parotitis x 2 passed w lemon drops 7. History of SARS-CoV-2 x3 8. Frail elderly 9. Hypertension Cardio is Dr Cazares [phone] EKG 11/01/19 SB w 1AVB EKG 08/29/24 SB HR 53 1 AVB, nonspecific intraventricular conduction delay Echo 08/29/24 Mild LVH, normal LVEF, Impaired diastolic relaxation (normal for age) 10. Carcinoma of prostate Dx 2016; Just Watch & Wait; no RT or Chemo Ever Done Still Sees URO as Directed as of [address] Lopez [phone] TURP bx 11/03 demonstrating 1 core of Naima 6 disease w PSA 14.7, 06/03 PSA improved to 11.8 w 6 month f/u 11. Aortic aneurysm Ascending Aortic Aneurysm; < 5 CM as of 2022; Serial US's of Aorta Done via Private Cardio Cardio is Dr Cazares [phone] 12. Hypothyroidism 13. Sensory neuropathy Involves Both LE's Below Knee and Both Feet Also a New Sensory Neuropathy Both Hands 14. Spinal stenosis of lumbosacral region Discectomy (level?) and Laminectomy (level?) approx 2018; Spin Stenosis Contrubuted to Periph Sensory Neuropathy LE's and Fet 08/31/24 x-ray L/S multil level DDD 15. Osteonecrosis of head of femur Osteo-Necrosis, Head Both Femurs ; Then Had THR, Bilat and Surg Revision Left Hip Cause of Osteo- Necrosis? Corticosteroids 16. Carpal tunnel syndrome of right wrist Carpal Tunnel Release, R Wrist approx 2014 17. Screening for malignant neoplasm of colon done Last Surveil Colonoscopy approx 2019: no CRC; +Benign Poiyposis Curtail Further Surveil Colonoscopies; Can't Do Prep Anymore Also Has Ext/Internal Hemorrhoids Gastro is Dr Baxter [phone] 18. Alcoholic cirrhosis Ceased ETOH Early ; Has Consequent Thrombocytopenia 08/30 had EGD w no varices repeat in 3 years recommended (declined) 19. Hypercholesterolemia 20. Shoulder pain R Shldr > L Shldr; R Shldr Hurt Upon a Fall Onto R Shldr 21. Anemia 22. Splenomegaly Context of this Splenomegaly? Might Be An Incidental Finding on a CT of ABD 23. Unsteady when walking Can't Ambulate w/o Walker (due to lower ext. neuropathy and lingering lbp) 24. Visual impairment Uses Only Reading Glasses; Last Retinal Exam JUL 04: pending Further Ophth Eval Later JUL 04 25. Under care of doctor PCP Dr Jackson [phone] [facility] pharmacy: [facility] [phone] 26. Chronic gouty arthritis 27. Abnormal gait due to impairment of balance Severe Neuropathy Legs, Feet; Can't Weight-Bear Allergies: PREDNISONE, HCTZ HYDROCHLOROTHIAZIDE, MEDROL (MARGO), DILTIAZEM The following VA and Non-VA meds were reconciled with patient: Active and Recently Outpatient Medications (excluding Supplies): Active Outpatient Medications Status 1) DICLOFENAC NA 1% TOP GEL APPLY 2 GRAMS TOPICALLY FOUR TIMES ACTIVE DAILY NEEDED - USE DOSING CARD PROVIDED IN BOX Indication: FOR OSTEOARTHRITIS 2) FUROSEMIDE 20MG TAB TAKE ONE TABLET BY MOUTH ONCE DAILY TO ACTIVE REMOVE FLUID/CONTROL BLOOD PRESSURE Indication: FOR VISIBLE WATER RETENTION 3) LEVOTHYROXINE NA 100MCG TAB TAKE ONE TABLET BY MOUTH EVERY ACTIVE MORNING 30 MINUTES BEFORE BREAKFAST TAKE ON AN EMPTY STOMACH WITH A FULL GLASS OF WATER DOSE REDUCTION Indication: FOR THYROID 4) LIDOCAINE 5% PATCH APPLY 1 PATCH TOPICALLY ONCE DAILY ACTIVE NEEDED (LEAVE PATCH ON FOR 12 HOURS, THEN REMOVE PATCH) MAY USE UP TO 3 PATCHES/DAY Indication: FOR NERVE PAIN 5) LOSARTAN 25MG TAB TAKE ONE TABLET BY MOUTH ONCE DAILY FOR ACTIVE BLOOD PRESSURE/HEART Indication: FOR HIGH BLOOD PRESSURE 6) MICONAZOLE NITRATE 2% TOP CREAM APPLY A THIN FILM TOPICALLY ACTIVE TWICE DAILY NEEDED APPLY TO AFFECTED AREAS UNTIL RESOLVED AND NEEDED Indication: FOR FUNGAL INFECTION OF SKIN 7) SENNOSIDES 8.6MG TAB TAKE ONE TABLET BY MOUTH ONCE DAILY ACTIVE NEEDED Indication: FOR CONSTIPATION 8) TRAZODONE HCL 100MG TAB TAKE ONE-HALF TO ONE TABLET BY MOUTH ACTIVE AT BEDTIME NEEDED FOR Indication: SLEEP 9) TRIAMCINOLONE ACETONIDE 0.5% CREAM APPLY A SMALL AMOUNT ACTIVE TOPICALLY TWICE DAILY USE 2-4 WEEKS, UNTIL RESOLVED Indication: FOR SKIN INFLAMMATION 10) ZINC OXIDE 20% OINT APPLY SMALL AMOUNT TOPICALLY ONCE DAILY ACTIVE APPLY AROUND ANY OPEN SKIN Indication: FOR SKIN IRRITATION Active Non-VA Medications Status 1) Non-VA ALLOPURINOL 300MG TAB 300MG BY MOUTH ONCE DAILY ACTIVE 2) Non-VA ATORVASTATIN CALCIUM 20MG TAB 10MG BY MOUTH BEDTIME ACTIVE 3) Non-VA FAMOTIDINE 20MG TAB 20MG BY MOUTH ONCE DAILY ACTIVE 4) Non-VA FENOFIBRATE (EQV-TRICOR)*PREFERRED* TAB 200 MG BY ACTIVE MOUTH ONCE DAILY 5) Non-VA IPRATROPIUM BR 0.06% SOLN,SPRAY,NASAL 0.03% INTO EACH ACTIVE NOSTRIL ONCE DAILY 6) Non-VA MULTIVITAMIN CAP/TAB 1 TABLET BY MOUTH ONCE DAILY ACTIVE 7) Non-VA OTHER CAP/TAB MAGNESIUM GLYCINATE 240MG BY MOUTH AT ACTIVE BEDTIME 8) Non-VA TAMSULOSIN HCL 0.4MG CAP 0.8MG BY MOUTH ONCE DAILY ACTIVE 9) Non-VA TRAMADOL HCL 50MG TAB 50MG BY MOUTH THREE TIMES DAILY ACTIVE NEEDED 10) Non-VA VITAMIN D3 (CHOLECALCIFEROL) TAB 5MCG BY MOUTH ONCE ACTIVE DAILY 20 Total Medications Recent Falls Y( ) N(x) Recent Infections Y( ) N(x) Recent Hospitalizations Y ( ) N(x) SH: SERVICE CONNECTED % - NONE FOUND RATED DISABILITIES - NONE 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 No GI/ concerns. No psych concerns. sleep poor d/t napping VITAL SIGNS: B/P: 122/52 (03/27/2025 16:32) Pulse: 57 (03/27/2025 16:32) Temperature: 98.7 F [37.1 C] (03/27/2025 16:32) Weight: 258 lb [117.03 kg] (03/27/2025 16:32) Height: 70 in [177.8 cm] (06/22/2024 11:09) BMI: BMI: 37.1 Pain: 1 (03/06/2025 14:00) (0-10 scale) Pulse Ox:Measurement DT POx (L/MIN)(%) 03/27/2025 16:32 98 pt is alert and oriented x4. NAD. well kempt, mood appropriate, good eye contact HEENT: normal, pharynx normal, oral mucosa moist NECK: supple, no JVD, lymph nodes not palpable, no carotid bruits CVS: regular rate and rhythm normal Lungs: clear to auscultation throughout, no use of accessory muscles ABD: Benign, positive BS x 4 EXT: +3/4 BLE pitting edema R>L, good signs of perfuson DERM: no worrisome lesions, pink in between abd skin folds, area of inflammed skin to RLE Get up and go normal (x)with ( )without assistive device. 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 referred to heme and they want in person eval, cont to monitor and refer locally as patient desires >Anxiety: improved prviously discussed biofeedback, CBT, alpha stim >insomnia: r/t napping during day, encouraged limit this sleep hygeine discussed list of [facility] apps provided declines home sleep study cont w trazodone 50-100mg qhs PRN consider veronica psych eval if requested >HTN: Stable. c/w lasix 20mg daily, does not wish to increase dose c/w compression device c/w home BP monitor monitor, HIMANSHU diet weight today 258 which is improved. >hypothyroidism: concern is overcorrected then undercurrected. Previously took in AM w all meds. now taking in PM, repeat labs as ordered Synthroid 100mcg daily, follow TSH >chronic pain: has not been a recent complaint. 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 stop fenofibrtate in setting of elevated LFTs, monitor HM: (x)advance directive UTD f/u 3-6 months, sooner PRN Review of medical records: 10 min Time spent w patient including shared decision makin min Post visit documentation: [address] time: 60 min No barriers; Patient understands and agrees to current treatment plan. /guillermo/ LING HERRMANN RN,MSN,HYGIENE COORDINATOR-C [facility] NURSE PRACTITIONER Signed: 03/27/2025 16:50 03/27/2025 ADDENDUM STATUS: COMPLETED patient agrees to hep B series. updated labs ordered for Jun/Jul /guillermo/ LING HERRMANN RN,MSN,HYGIENE COORDINATOR-C [facility] NURSE PRACTITIONER Signed: 03/27/2025 16:51 Receipt Acknowledged By: * AWAITING SIGNATURE * NAILA PATTEN * AWAITING SIGNATURE * CAIT LOW 03/27/2025 ADDENDUM STATUS: COMPLETED Please review need for grab bars going out back deck at f/u. /guillermo/ LING HERRMANN RN,MSN,HYGIENE COORDINATOR-C [facility] NURSE PRACTITIONER Signed: 03/27/2025 16:55 Receipt Acknowledged By: * AWAITING SIGNATURE * DEBBIE DOOLEY,VALENCIA FLORIAN PR [facility]L [facility]
--- NOTE | 2025-04-26 11:01 | A.OFFVIS_ITS ---
Vital Signs 04/26/25 11:08 Height 5 ft 10 in Weight 254 lb BMI 36.4 Intake Visit Reasons: Right shoulder pain and weakness Intake Note: Pete is a 79 year old right hand dominant male who presents with complaints of progressively worsening right shoulder pain and weakness. The patient states that he injured his shoulder several months ago when he fell. Since that time he has had difficulty lifting his right hand above shoulder height. He has tried Tylenol and anti-inflammatory medicines which gave him minimal relief. He has also tried physical therapy exercises which aggravated his pain. Allergies methylprednisolone (From Medrol) Allergy (Unknown, Verified 04/26/25 11:11) necrosis Medication List - Last Reconciled 04/26/25 by German Foster MD allopurinol 300 mg PO DAILY atorvastatin 10 mg PO DAILY furosemide 20 mg PO DAILY levothyroxine mcg PO metoprolol succinate ER 50 mg PO DAILY tamsulosin 0.4 mg PO BID tramadol 50 mg PO TID PRN Physical Exam Vital Signs: BMI result Body Mass Index 36.4 Const Other: Well-nourished well-developed very friendly male awake alert and oriented x3 in no acute distress Extrem Other: Right shoulder examination shows decreased active range of motion but almost full passive range of motion when compared to his left shoulder, 3/5 strength with supraspinatus testing, positive impingement signs, no instability Results Reviewed Results Reviewed: X-rays of the patient's right shoulder show severe acromioclavicular joint n arrowing, a type 2 acromion, no acute bony abnormalities Assessment & Plan Assessment & Plan (1) Rotator cuff insufficiency of right shoulder: Code(s): M25.311 - Other instability, right shoulder Category: Medical Plan Mr. Garza presents with right shoulder pain and weakness most likely due to a full-thickness rotator cuff tear. Thus, I will send the patient for an MRI of his right shoulder for further evaluation. I will see him back once the MRI is completed to discuss the findings and treatment options. Feel free to call me at any time should questions regarding his orthopedic management arise. Thank you very much for asking me to see this very friendly gentleman. I spent 22 minutes in reviewing the patient's records and imaging studies, seeing the patient and documenting in the medical record. Orders: Orders MR shoulder RT wo con Today M25.311 - Other instability, right shoulder XR shoulder RT min 2V Today M25.511 - Pain in right shoulder Coding Level of Care Code New Pt Level 3 (76052) Complex EM visit Add On G2211 Diagnoses Rotator cuff insufficiency of right shoulder M25.311
[2025-04-26 11:08] VITALS: BMI 36.4
== END 2025-04-26 11:21 | disposition home or self-care (01) ==
LOC: HO.HOS 10:54
PROVIDERS: PCP Nurse Practitioner Family; Visit Provider Orthopaedic Surgery
DX: M25.311 Other instability, right shoulder (principal)
CPT/HCPCS: 99203; G2211

== ENCOUNTER → 2025-04-26 10:58 | Outpatient (BNV) | payer OTHER, SELFPAY | PROVIDERS: Visit Provider Radiology Diagnostic Radiology | DX: M19.011 Primary osteoarthritis, right shoulder (principal) | CPT/HCPCS: 73030 ==

== ENCOUNTER 2025-05-18 09:57 | Outpatient (REF) | payer OTHER, SELFPAY ==
--- NOTE | ~2025-05-18 | MR_ITS ---
CLINICAL HISTORY: M25.311 - Other instability, right shoulder MR right shoulder without gadolinium Comparison: DX/SR - XR SHOULDER 2 OR MORE VIEWS RIGHT - 04/26/25 10:58 EDT Findings: No acute fracture or pathologic bone lesion. Superior subluxation of the humeral head. Moderate acromioclavicular and glenohumeral joint osteoarthritis. Type II acromion. Large glenohumeral joint effusion. Moderate acromioclavicular joint effusion. Full-thickness tearing with medial retraction and atrophy of the supraspinatus tendons. Moderate grade intrasubstance and articular surface tearing of the upper, mid, and lower subscapularis tendons at the humeral insertion site extending to the musculotendinous junction. Teres minor tendon is intact. Diffuse glenoid labral tearing. Full-thickness biceps tendon tear. IMPRESSION: 1. Full-thickness tearing and atrophy of the entire supraspinatus and infraspinatus tendons. 2. Partial-thickness tearing of the subscapularis tendon. 3. Acromioclavicular and glenohumeral joint osteoarthritis with associated effusions. 4. Glenoid labral tear. 5. Biceps tendon tear. This document has been electronically signed by: Monty Ribeiro MD on 05/18/2025 15:34:26
== END 2025-05-18 09:58 | disposition home or self-care (01) ==
LOC: HO.MRI 09:57
PROVIDERS: Visit Provider Orthopaedic Surgery
DX: M25.311 Other instability, right shoulder (principal)
CPT/HCPCS: 73221

== ENCOUNTER → 2025-05-18 10:09 | Outpatient (BNV) | payer OTHER, SELFPAY | PROVIDERS: Visit Provider Radiology Diagnostic Radiology | DX: M25.411 Effusion, right shoulder (principal) | CPT/HCPCS: 73221 ==

== ENCOUNTER 2025-05-23 10:07 | Outpatient (AMB) | payer OTHER, SELFPAY ==
[2025-05-23 10:08] VITALS: BMI 36.3
--- NOTE | 2025-05-23 10:08 | MHC.OFFVIS ---
Vital Signs 05/23/25 10:08 Height 5 ft 10 in Weight 253 lb BMI 36.3 Intake Visit Reasons: EP, MRI review R shoulder Intake Note: Pete is a 80 year old right hand dominant male who presents with complaints of progressively worsening right shoulder pain and weakness. The patient states that he injured his shoulder several months ago when he fell. Since that time he has had difficulty lifting his right hand above shoulder height. He has tried Tylenol and anti-inflammatory medicines which gave him minimal relief. He has also tried physical therapy exercises which aggravated his pain. Allergies methylprednisolone (From Medrol) Allergy (Unknown, Verified 05/23/25 10:08) necrosis Medication List - Last Reconciled 05/23/25 by eGrman Foster MD allopurinol 300 mg PO DAILY atorvastatin 10 mg PO DAILY furosemide 20 mg PO DAILY levothyroxine mcg PO metoprolol succinate ER 50 mg PO DAILY tamsulosin 0.4 mg PO BID tramadol 50 mg PO TID PRN Physical Exam Vital Signs: BMI result Body Mass Index 36.3 Const Other: Telehealth appointment today so no physical examination was performed Telehealth Telehealth Telehealth Platform: Telephone Location of provider rendering services: practice address Location of patient: address on file Patient Identification confirmed using: Name, : Yes Telehealth method: voice only Patient verbally consented to treatment: Yes Patient verbally consented to billing insurance company: Yes Patient informed of any privacy concerns related to visit: Yes Minutes spent on Phone/Video with Pt.: 12 Results Reviewed Results Reviewed: MRI of the patient's right shoulder shows chronic tearing of the supraspinatus and infraspinatus tendons as well as moderate to severe glenohumeral joint degenerative changes Assessment & Plan Assessment & Plan (1) Right shoulder pain: Code(s): M25.511 - Pain in right shoulder Category: Medical Plan Mr. Garza presents with right shoulder pain and weakness due to chronic rotator cuff tearing and glenohumeral joint arthritis. I had a lengthy discussion with the patient regarding the treatment options. He wishes to hold off on shoulder replacement surgery if at all possible. I agree with this plan. The patient does not wish for a cortisone injection. He did have a bad reaction to a Medrol Dosepak in the past. He will continue with his range of motion exercises to prevent stiffness. He will follow up with me on an as-needed basis. Coding Level of Care Code Est Pt Level 2 (14507) Complex EM visit Add On G2211 Diagnoses Right shoulder pain M25.511
== END 2025-05-23 10:13 | disposition home or self-care (01) ==
LOC: HO.HOS 10:07
PROVIDERS: Referring Provider Orthopaedic Surgery; Visit Provider Orthopaedic Surgery
DX: M25.511 Pain in right shoulder (principal)
CPT/HCPCS: 99212; G2211

== ENCOUNTER → 2025-05-23 10:07 | Outpatient (BNVA) | payer OTHER, SELFPAY | PROVIDERS: Visit Provider Orthopaedic Surgery | DX: Z71.2 Person consulting for explanation of examination or test findings (principal); M25.511 Pain in right shoulder; R53.1 Weakness | CPT/HCPCS: 99212 ==